=== PATIENT | female | born 1980 | race Caucasian/White ===

== ENCOUNTER → 2019-08-04 | Outpatient (CLI) | payer OTHER ==
[~2019-08-04] MED LIST: REGADENOSON 0.4 MG/5 ML DISP.SYRIN. IV ONE
--- NOTE | 2019-08-05 09:20 | RAD ---
MR#: [id number] Date of Study: 08/04/2019 Ordering Physician: JESSICA PHILLIP, Referring Physician: AL OTOOLE Tech: RT Jl Beavers) (N) APPROVED REPORT Test Type: Pharmacological Stress Nurse/Tech: Farheen Stokes RN Test Indications: chest pain Cardiac History: Family history,asthma,smoker Medications: See Electronic Medical Record Medical History: See Electronic Medical Record Resting ECG: SB Resting Heart Rate: 52 bpm Resting Blood Pressure: 100/67mmHg Pretest Chest Pain: No chest pain Nurse/Tech Notes S1,S2 and lungs clear to auscultation. Consent: The procedure was explained to the patient in lay terms. Informed consent was witnessed. Donny eout was entered into [employer]. History and Stress Test performed by RT Jl Beavers) (N) Pharm. Details Pharmacologic stress testing was performed using 0.4mg per 5ml of regadenoson given intravenously ove r 7-10 seconds. Stress Symptoms Chest pain under left breast/tightness. Patient stated she felt like she was having a panic attack. POST EXERCISE Reason for Termination: Infusion complete Target HR: No Max HR: 118 bpm 76% of Maximum Predicted HR: 155 bpm Max Blood Pressure: 113/58mmHg Blood Pressure response to exercise: Normal blood pressure response during stress. Heart Rate response to exercise: WNL Chest Pain: Yes. see note above. Arrhythmia: No. ST Change: No. INTERPRETATION Stress EKG Conclusion: Baseline EKG showed sinus rhythm. No ischemic changes at peak stress. No arr hythmias. Imaging Protocol IMAGE PROTOCOL: Rest Tc-99m/stress Tc-99m 1 day Rest: Stress: Viability: Radiopharm.Tc99m [id number] Sestamibi Dose10.6mCi 33mCi Duration 13min. 13min. Img Date 08/04/2019 08/04/2019 Inj-Img [id number]. 60min. Rest Admin Site:IV - Right AntecubitalAdministrator:RT Jl Beavers)(N) Stress Admin Site: IV - Right AntecubitalAdministrator: Alta Kendall, RT (R)(N) STRESS DATA End Diast. Vol.92.0mlLVEDV index BSA59.0ml End Syst. Vol.23.0mlLVESV index BSA15.0ml Myocardial Sonq690.0gEject. Gzodrstp10.0% Stress Scores Regional WT0.00Summed WT4.00 Regional WM0.00Summed WM0.00 Study quality was good. Left Ventricular size was Normal at Rest and Stress. Lung uptake was . Left Ventricular ejection fraction is 75%. The rest and stress images show normal perfusion, normal contraction and thickening. LV Perf. Quant 17 Seg. SSS0.00 17 Seg. SRS2.00 17 Seg. SDS0.00 Stress Defect Extent (% LAD)0.00Rest Defect Extent (% LAD)6.30Rev. Defect Extent (% LAD)0.00 Stress Defect Extent (% LCX) 0.00Rest Defect Extent (% LCX)0.00Rev. Defect Extent (% LCX)0.00 Stress Defect Extent (% RCA)0.00Rest Defect Extent (% RCA)0.00Rev. Defect Extent (% RCA)0.00 Stress Defect Extent (% CHON)0.00Rest Defect Extent (% CHON)3.50Rev. Defect Extent (% CHON)0.00 Conclusion 1. Regadenoson cardioisotope stress test did not show any evidence of ischemia or infarct. 2. Normal left ventricular systolic function with ejection fraction calculated at 75%. 3. Low risk for cardiac events. Signed by : Jarrod Velasquez, Electronically Approved : 08/04/2019 11:17:18
== END | disposition home or self-care (01) ==
LOC: NM 07:54
PROVIDERS: ATTEND Internal Medicine Cardiovascular Disease
DX: R07.89 Other chest pain (principal); J45.909 Unspecified asthma, uncomplicated; F17.200 Nicotine dependence, unspecified, uncomplicated
CPT/HCPCS: 78452; 93017; A9500; J2785

== ENCOUNTER → 2021-11-17 | Outpatient (CLI) | payer OTHER ==
--- NOTE | 2021-11-17 10:49 | RAD ---
EXAM: Renal sonogram. HISTORY: Renal colic. TECHNIQUE: Sonographic imaging of the kidneys and bladder was performed. COMPARISON: None. FINDINGS: The kidneys are normal in size. No solid or cystic renal lesion is seen. There is no hydron ephrosis. The ureteral jets are not seen during the exam. The bladder is otherwise unremarkable. The prevoid bladder volume is 38 cc. IMPRESSION: Sonographically unremarkable kidneys and bladder. Electronically signed by: Alta South MD (11/17/2021 10:46 AM) [id number]
== END ==
LOC: US 09:33
PROVIDERS: ATTEND Family Medicine
DX: N23 Unspecified renal colic (principal)
CPT/HCPCS: 76770